=== PATIENT | female | born 1995 | race Caucasian/White ===

== ENCOUNTER 2018-11-19 20:38 | Emergency (ER) | payer BC ==
[~2018-11-19] VITALS: Ht 157.5 cm; Wt 71.7 kg
--- NOTE | 2018-11-19 20:40 | NUR ---
Patient to ER bed 03 to gown for evaluation. Side rails up.
[2018-11-19 20:41] VITALS: BP_SYST 130
--- NOTE | 2018-11-19 20:48 | NUR ---
Dr. Zayas bedside for Pt eval
--- NOTE | 2018-11-19 20:50 | NUR ---
Pt BIBA w/ c/o of numbness to face and hands after having a panic attack during dinner. Pt states she became tearful at dinner when she felt like she was feeling off and did not have the energy to get up or talk. Pt also c/o of slight nausea. Pt denies any Hx of anxiety, or c/o of fever, nausea, headache or pain. Will continue to monitor.
[2018-11-19] MEDS ORDERED: LORazepam 1 MG TABLET PO ONE (21:00)
[2018-11-19] MEDS ORDERED: ONDANSETRON 4 MG ODT TAB PO ONE (21:00)
[2018-11-19 21:18] LABS: CALCIUM 9.2 mg/dL (8.4-11.0); CREATININE 0.86 mg/dL (0.55-1.30); POTASSIUM 3.8 mmol/L (3.5-5.1)
[2018-11-19 21:20] LABS: HEMOGLOBIN 12.4 g/dL (12.0-16.0)
[2018-11-19 21:24] LABS: ALBUMIN 3.7 g/dL (3.4-4.8); TOTAL BILIRUBIN 0.1 mg/dL (0.0-1.0)
[2018-11-19 21:25] LABS: BASOPHILS % (AUTO) 0.7 % (0.0-2.0); EOSINOPHILS # (AUTO) 0.1 K/uL (0.0-0.4); EOSINOPHILS % (AUTO) 2.2 % (0.0-4.0); HEMATOCRIT 37.6 % (36-48); LYMPHOCYTES # (AUTO) 1.8 K/uL (1.0-5.5); LYMPHOCYTES % (AUTO) 28.8 % (20.5-51.5); MEAN CORPUSCULAR HEMOGLOBIN 28 pg (27-31); MEAN CORPUSCULAR HGB CONC 33 % (32-36); MEAN CORPUSCULAR VOLUME 84 fL (79.0-98.0); MONOCYTES # (AUTO) 0.4 K/uL (0.0-1.0); MONOCYTES % (AUTO) 6.8 % (1.7-9.3); NEUTROPHILS # (AUTO) 3.8 K/uL (1.8-7.7); NEUTROPHILS % (AUTO) 61.5 % (40.0-70.0); PLATELET COUNT (AUTO) 244 K/uL (130-430); RED BLOOD CELL COUNT(AUTO) 4.48 MIL/uL (4.2-6.2); RED CELL DISTRIBUTION WIDTH 14.6 % (9.0-15.0); WHITE BLOOD COUNT (AUTO) 6.1 K/uL (4.8-10.8)
[2018-11-19 21:25] LABS: BILIRUBIN,URINE NEGATIVE (NEGATIVE); BLOOD, URINE NEGATIVE (NEGATIVE); CLARITY/URINE CLEAR (CLEAR); COLOR,URINE YELLOW (YELLOW); GLUCOSE,URINE NEGATIVE (NEGATIVE); KETONES,URINE 1+ (NEGATIVE); LEUKOCYTE ESTERASE ,URINE NEGATIVE (NEGATIVE); NITRITE, URINE NEGATIVE (NEGATIVE); PROTEIN URINE NEGATIVE (NEGATIVE); UROBILINOGEN,URINE 0.2 (0.2-1.0)
[2018-11-19 21:40] VITALS: BP_SYST 129
--- NOTE | 2018-11-19 21:40 | NUR ---
Patient given written and verbal discharge instructions and verbalizes understanding. ER MD discussed with patient the results and treatment provided. Patient in stable condition. ID arm band removed. Patient educated on pain management and to follow up with PMD. Pain Scale 0/10. Opportunity for questions provided and answered. Medication side effect fact sheet provided.
== END 2018-11-19 21:40 | disposition home or self-care (01) ==
LOC: SED 20:38
DX: F41.1 Generalized anxiety disorder (principal); J45.909 Unspecified asthma, uncomplicated; R51 Headache; R03.0 Elevated blood-pressure reading, without diagnosis of hypertension
CPT/HCPCS: 36415; 80053; 81003; 85025; 99284; Q0162